=== PATIENT | female | born 1990 | race African-American/Black ===

== ENCOUNTER 2017-07-15 13:44 | Emergency (ER) | payer MEDICARE, OTHER ==
[~2017-07-15] VITALS: Ht 167.6 cm; Wt 75.0 kg
[2017-07-15 13:58] VITALS: BP 110/61
[2017-07-15] MEDS ORDERED: LURA80TA PO (14:02)
[2017-07-15] MEDS ORDERED: ACETAMINOPHEN 650MG/20.3ML UDC PO ONE (15:00)
== END 2017-07-15 17:09 | disposition home or self-care (01) ==
LOC: ER 14:00
DX: S93.401A Sprain of unspecified ligament of right ankle, initial encounter (principal); F20.9 Schizophrenia, unspecified; F17.210 Nicotine dependence, cigarettes, uncomplicated; Z88.0 Allergy status to penicillin; W17.89XA Other fall from one level to another, initial encounter; Y93.89 Activity, other specified; Y92.018 Other place in single-family (private) house as the place of occurrence of the external cause
CPT/HCPCS: 73590; 73610; 73630; 81025; 99284